=== PATIENT | female | born 1940 | race American Indian/Alaskan Native ===

== ENCOUNTER 2017-03-03 13:17 | Outpatient (CLI) | payer MEDICARE ==
--- NOTE | 2017-03-04 09:34 | Magnetic Resonance Report ---
MRI scan lumbar spine: History: Back pain. Technique: Multiplanar, multisequence images were obtained without contrast injection. Findings: The conus medullaris terminates at L1 with normal signal intensity. Normal lumbar lordosis. Normal pre-and paravertebral soft tissue. Normal height and signal intensity of vertebral bodies. Decrease in height and signal intensity of intervertebral disc spaces secondary to degenerative changes. This extends from the lower thoracic spine to lower lumbar spine. L1-L2. Degenerative disc. No neuroforaminal narrowing or central canal spinal stenosis. Degenerative facet joints. L2-L3. Mild bilateral neural foramina narrowing with moderate central canal spinal stenosis secondary to degenerative diffuse disc bulge and degenerative facet joint and ligamenta flava hypertrophy. L3-L4. Severe bilateral neural foramina narrowing with mild central spinal stenosis secondary to degenerative diffuse disc bulge and degenerative facet joints. No central canal spinal stenosis. L4-L5. Posterior central disc protrusion with compression of the adjacent ventral aspect of thecal sac extending from 5 to 7:00 o'clock position. Associated with degenerative diffuse disc bulge with severe bilateral neural foramina narrowing bilaterally. Moderate to severe central canal spinal stenosis. Degenerative facet joints. L5-S1. Moderate bilateral neural foramina narrowing secondary to degenerative diffuse disc bulge. Degenerative facet joints. No definite central canal spinal stenosis. Impression: Multilevel bilateral neural foramina narrowing and central canal spinal stenosis. Additional findings as detailed above.
== END 2017-03-03 13:18 | disposition home or self-care (01) ==
LOC: SPVIMAG 13:17
PROVIDERS: ATTEND Internal Medicine
DX: M48.06 Spinal stenosis, lumbar region (principal); M47.896 Other spondylosis, lumbar region; M51.26 Other intervertebral disc displacement, lumbar region; M40.46 Postural lordosis, lumbar region; I10 Essential (primary) hypertension; E78.00 Pure hypercholesterolemia, unspecified; I25.10 Atherosclerotic heart disease of native coronary artery without angina pectoris; E78.5 Hyperlipidemia, unspecified
CPT/HCPCS: 72148

== ENCOUNTER 2017-07-04 15:57 | Outpatient (CLI) | payer MEDICARE ==
--- NOTE | 2017-07-04 20:04 | XRay Report ---
FINAL REPORT EXAM: XR CHEST ROUTINE 2V HISTORY: PRE-OP EXAM TECHNIQUE: Two view chest PA and lateral PRIORS: None. FINDINGS: Cardiac and mediastinal contours are unremarkable. No focal pulmonary infiltrate is identified. No pleural fluid collection seen. Pulmonary vasculature is unremarkable. IMPRESSION: Negative two-view chest
== END 2017-07-04 15:58 | disposition home or self-care (01) ==
LOC: SPVIMAG 15:57
PROVIDERS: ATTEND Internal Medicine
DX: Z01.818 Encounter for other preprocedural examination (principal)
CPT/HCPCS: 71020